=== PATIENT | female | born 1965 | race Caucasian/White ===

== ENCOUNTER 2019-11-21 13:22 | Emergency (ER) | payer BC, SELFPAY ==
--- NOTE | ~2019-11-21 | CT_ITS ---
EXAMINATION: CT brain wo con EXAM DATE: 11/21/2019 16:13 INDICATION: Dizziness. TECHNIQUE: Spiral CT of the head was performed without contrast. Axial, coronal and sagittal images were reviewed. The dose-length product (DLP) for this examination was 605.33 mGy-cm. The exposure w as tailored according to patient size, and iterative reconstruction (ASIR) was used as additional dos e reduction technique. There is no prior study for comparison. FINDINGS: There is no acute intraparenchymal hemorrhage. No evidence of intraparenchymal brain mass lesion. No evidence of acute infarction. There is no mass effect or midline shift. The ventricles are normal in size. There are no extra-axial collections. There are no acute calvarial fractures. T he orbits are unremarkable. Soft tissue is unremarkable. The visualized sinuses and mastoid air alicia ls are well aerated. IMPRESSION: 1. Normal head CT examination. Reviewed, dictated and finalized at location A. 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
--- NOTE | ~2019-11-21 | XR_ITS ---
XR chest 1V portable DATE: 11/21/2019 16:02 INDICATION: Dizziness TECHNIQUE: Portable upright AP chest on 11/21/2019 at 1559 hours COMPARISON: None FINDINGS: Normal heart size. No hilar or mediastinal enlargement. Bilateral hyperinflation. No pulmonary infiltrate or consolidation, pleural effusion or pulmonary vas cular congestion or pneumothorax. IMPRESSION: Bilateral hyperinflation Reviewed, dictated and finalized at location B. 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
[2019-11-21 13:29] VITALS: BP 125/75; PULSE 85; RESP 18; TEMP 36.8; O2SAT 100
[2019-11-21 13:55] LABS: Basophils Percent Auto 0.2 % (0.2-1.2); Hematocrit 45.2 % (37.0-47.0); Immature Granulocyte Absolute 0.02 K/mm3 (0.00-0.031); Immature Granulocyte Percent A 0.2 % (0-0.5); Lymphocytes Absolute Auto 0.89 K/mm3 (0.9-3.2); Mean Corpuscular HGB Conc 33.2 g/dl (32-36); Mean Corpuscular Hemoglobin 30.7 pg (26-34); Mean Corpuscular Volume 92.4 fl (80-100); Mean Platelet Volume 12.2 fl (7.4-10.4); Monocytes Absolute Auto 0.3 K/mm3 (0.1-0.6); Monocytes Percent Auto 3.7 % (2.6-8.5); Neutrophils Absolute Auto 6.8 K/mm3 (1.3-6.7); Neutrophils Percent Auto 84.9 % (45.5-73.1); Platelet Count Result 224 k/mm3 (150-375); Red Blood Count 4.89 M/mm3 (4.2-5.4); Red Cell Distribution Width 12.6 % (11.5-14.5); White Blood Count 8.1 K/mm3 (4.5-10.0)
[2019-11-21 14:03] LABS: Alanine Aminotransferase 21 U/L (4-35); Albumin Level 4.7 g/dL (3.5-5.1); Alkaline Phosphatase 95 U/L (38-126); Aspartate Amino Transferase 28 U/L (14-36); Bilirubin,Total 0.5 mg/dL (0.2-1.3); Blood Urea Nitrogen 15 mg/dL (7-17); Calcium 9.7 mg/dL (8.4-10.2); Carbon Dioxide 25 mmol/L (22-30); Chloride 99 mmol/L (98-107); Estimated CRCL calculation 81 ml/min; Estimated Glomerular Filt Rate > 60; Glucose 118 mg/dL (65-105); Lipase 56 U/L (23-300); Potassium 4.7 mmol/L (3.4-5.0); Sodium 138 mmol/L (137-145)
--- NOTE | 2019-11-21 15:51 | ED.DIZZY ---
HPI - Dizziness General Chief Complaint: Dizziness Stated Complaint: dizziness/vomiting Time Seen by Provider: 11/21/19 15:49 Source: patient Mode of arrival: ambulatory Limitations: no limitations History of Present Illness HPI Narrative: Pt is a 54 y/o female who presents to the ED with c/o dizziness that started this morning when she woke up. She reports associated nausea and vomiting. Her dizziness is aggravating with quick movements and is alleviated when laying down and closing her eyes. She denies any numbness/tingling. MD elicited complaint: dizziness Onset (ago): hour(s) (this morning) Timing: awoke with symptoms Exacerbating factors: movement/ambulation Relieving factors: lying down and keeping eyes closed Associated symptoms: nausea and vomiting Related Data Home Medications Medication Instructions Recorded Confirmed estradiol-norethindrone acet 1 tablet PO DAILY 11/21/19 levothyroxine [Synthroid] 112 mcg PO DAILY 11/21/19 11/21/19 tramadol 50 mg PO TID 11/21/19 Allergies Allergy/AdvReac Type Severity Reaction Status Date / Time No Known Allergies Allergy Verified 11/21/19 16:20 Review of Systems Review of Systems: All systems reviewed & are unremarkable except as noted in HPI and below Gastrointestinal: Gastrointestinal: Reports nausea and Reports vomiting Neurologic: Reports dizziness, Denies numbness and Denies tingling PMFSH Past Medical History Medical History (Updated 11/21/19 @ 18:00 by Akin Dunham DO) Hypothyroid Surgical History Surgical History (Updated 11/21/19 @ 16:22 by Kalyani Brown) Hx of tonsillectomy Family History Family History (Updated 06/28/18 @ 08:33 by DOCTOR UNKNOWN) Other Family history of coronary artery disease Family history of thyroid disease Social History Social History Smoking status: Never smoker Second hand tobacco smoke exposure: No Alcohol intake: current Gender identity (if verbalized by the patient): Female Exam Narrative: Exam Narrative: APPEARANCE: No acute distress, nontoxic, resting in bed HEENT: Normocephalic, atraumatic, OMM, TMs clear bilaterally EYES: PERRL, EOMI NECK: Supple, nontender, full range of motion without pain, no meningismus RESPIRATORY: No respiratory distress, clear to auscultation bilaterally with no rhonchi wheezing or rales CARDIOVASCULAR: RRR s murmur ABDOMINAL: Soft, nontender, nondistended MUSCULOSKELETAL: Moves all extremities. No clubbing, cyanosis or edema. NEURO: A and O ?3, following commands, speech normal, cranial nerves II through XII grossly intact,muscle strength 5 out of 5 bilateral upper and lower extremities dizziness increased with rapid turning of the head SKIN:: Warm, dry. Normal Color PSYCHIATRIC: Normal affect/mood Course Course Emergency Course: Patient states she is feeling much better at this time. Able to get up and ambulate in ED with no assistance Discussed with patient results of workup and diagnosis. Discussed need for follow-up with primary care, proper use of medication, and reasons to return to the emergency department. Patient understands and agrees to current treatment plan Vital Signs Vital signs: Vital Signs Temperature 98.3 F 11/21/19 13:29 Pulse Rate 85 11/21/19 13:29 Respiratory Rate 18 11/21/19 13:29 Blood Pressure 125/75 11/21/19 13:29 Pulse Oximetry 100 11/21/19 13:29 Temperature 98.3 F 11/21/19 13:29 Pulse Rate 85 11/21/19 13:29 Respiratory Rate 18 11/21/19 13:29 Blood Pressure 125/75 11/21/19 13:29 Pulse Oximetry 100 11/21/19 13:29 MDM - Dizziness MDM Narrative Medical decision making narrative: Patient's vertigo is felt to be likely peripheral in origin. There is no diplopia, dysarthria or dysphagia. Patient's gait is stable and there are no cerebral deficits to exam. Risk factor for central causes of vertigo reviewed. Patient felt likely reasonable for co
[2019-11-21] MEDS: ONDANSETRON INJ 4 MG/2 ML VIAL IV PUSH (17:21)
[2019-11-21] MEDS: LACTATED RINGERS 1,000 ML 999 ML IV CONT (17:21)
[2019-11-21] MEDS: MECLIZINE HCL 25 MG TABLET PO (17:24)
--- NOTE | 2019-11-21 17:52 | ECG_ITS ---
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
[2019-11-21 18:47] VITALS: BP 123/95; PULSE 77; RESP 18; O2SAT 100
--- NOTE | 2019-11-29 08:27 | PC.NURSE ---
LATE ENTRY This note is being entered to document information to the patient's record. The following information was omitted on [11/21/2019], by [YVONNE Diaz]. LR 1000mL infused with a stop time of 1820.
== END 2019-11-21 18:48 | disposition home or self-care (01) ==
PROVIDERS: Emergency Provider Emergency Medicine; PCP Family Medicine
DX: R42 Dizziness and giddiness (principal); E03.9 Hypothyroidism, unspecified
CPT/HCPCS: 36415; 70450; 71045; 80053; 83690; 85025; 93005; 96361; 96374; 99284; A9270; J2405; J7120

== ENCOUNTER 2020-04-06 07:36 | Outpatient (CLI) | payer BC, SELFPAY ==
--- NOTE | ~2020-04-06 | MM_ITS ---
EXAMINATION: MM screening [facility] BI w penny HISTORY: Screening mammogram TECHNIQUE: Craniocaudal and mediolateral oblique 3-D tomosynthesis images were obtained and synthetic 2-D images were generated. CAD analysis was submitted and interpreted. COMPARISON: 02/25/2019 diagnostic right digital mammogram and limited right breast ultrasound 02/18/2019 bilateral digital screening mammogram 01/29/2018 diagnostic left digital mammogram and complete left breast ultrasound 01/28/2018, 01/22/2017, 01/19/2016 bilateral digital screening mammogram examinations BREAST PARENCHYMAL COMPOSITION: The breasts are heterogeneously dense, which may obscure small masses . FINDINGS: Stable fibroglandular asymmetry. There is no evidence of suspicious mass, calcification, or architectural distortion to suggest malignancy in either breast. There has been no suspicious interv al change. IMPRESSION: 1. No mammographic evidence of malignancy. 2. Recommend routine screening mammography in one year. BI-RADS Category 2: Benign finding(s). Reviewed, dictated and finalized at location A.
== END 2020-04-06 07:37 | disposition home or self-care (01) ==
LOC: ANHIMG 07:38
PROVIDERS: PCP Family Medicine; Visit Provider Obstetrics & Gynecology
DX: Z12.31 Encounter for screening mammogram for malignant neoplasm of breast (principal)
CPT/HCPCS: 77063; 77067

== ENCOUNTER 2021-04-07 07:33 | Outpatient (CLI) | payer BC, SELFPAY ==
--- NOTE | ~2021-04-07 | MM_ITS ---
EXAMINATION: MM screening [facility] BI w penny HISTORY: Screening mammogram TECHNIQUE: Craniocaudal and mediolateral oblique 3-D tomosynthesis images were obtained and synthetic 2-D images were generated. CAD analysis was submitted and interpreted. COMPARISON: Prior mammogram examinations and bilateral breast ultrasound examinations dating back to 01/11/2015 BREAST PARENCHYMAL COMPOSITION: The breasts are heterogeneously dense, which may obscure small masses . FINDINGS: There is stable fibroglandular asymmetry dating back to 01/11/2015. There is no evidence of suspicious mass, calcification, or architectural distortion to suggest malignancy in either breast. T here has been no suspicious interval change. IMPRESSION: 1. No mammographic evidence of malignancy. 2. Recommend routine screening mammography in one year. BI-RADS Category 2: Benign finding(s). Reviewed, dictated and finalized at location A.
== END 2021-04-07 07:34 | disposition home or self-care (01) ==
LOC: ANHIMG 07:36
PROVIDERS: PCP Family Medicine; Visit Provider Obstetrics & Gynecology
DX: Z12.31 Encounter for screening mammogram for malignant neoplasm of breast (principal)
CPT/HCPCS: 77063; 77067

== ENCOUNTER 2022-04-10 07:18 | Outpatient (CLI) | payer BC, SELFPAY ==
--- NOTE | ~2022-04-10 | MM_ITS ---
EXAMINATION: MM screening [facility] BI w penny HISTORY: Screening TECHNIQUE: Craniocaudal and mediolateral oblique 3-D tomosynthesis images were obtained and synthetic 2-D images were generated. CAD analysis was submitted and interpreted. COMPARISON: Comparison to multiple prior studies sequentially, with oldest reviewed study dated 01/28. BREAST PARENCHYMAL COMPOSITION: Breast composed of scattered areas of fibroglandular density FINDINGS: There is no evidence of suspicious mass, calcification, or architectural distortion to sugg est malignancy in either breast. There has been no suspicious interval change. IMPRESSION: 1. No mammographic evidence of malignancy. 2. Recommend routine screening mammography in one year. BI-RADS Category 1: Negative Reviewed, dictated and finalized at location A.
== END 2022-04-10 07:19 | disposition home or self-care (01) ==
LOC: ANHIMG 07:21
PROVIDERS: PCP Family Medicine; Visit Provider Obstetrics & Gynecology
DX: Z12.31 Encounter for screening mammogram for malignant neoplasm of breast (principal)
CPT/HCPCS: 77063; 77067

== ENCOUNTER 2023-04-12 07:18 | Outpatient (CLI) | payer BC, SELFPAY ==
--- NOTE | ~2023-04-12 | MM_ITS ---
EXAMINATION: MM screening [facility] BI w penny HISTORY: Screening mammogram TECHNIQUE: Craniocaudal and mediolateral oblique 3-D tomosynthesis images were obtained and synthetic 2-D images were generated. CAD analysis was submitted and interpreted. COMPARISON: 04/10/2022, 04/03/2021, 04/06/2020 bilateral screening mammogram examinations BREAST PARENCHYMAL COMPOSITION: The breasts are heterogeneously dense, which may obscure small masses . FINDINGS: There is increased density in the upper right breast on MLO projection since 04/10/2022. Sug gestion of an 11 mm partially circumscribed mass with halo sign in the posterior outer right breast ( craniocaudal Tomosynthesis image 20/55). Additional masses may be obscured by the heterogeneously den se stroma. Diagnostic right mammogram and right breast ultrasound examination are recommended. No suspicious mass, architectural distortion, malignant calcification, skin thickening or retraction or significant new or developing density is noted on the left. IMPRESSION: 1. Interval increase density and possible masses, right breast 2. Diagnostic right mammogram and right breast ultrasound examination are recommended BI-RADS Category 0: Incomplete: Needs additional imaging evaluation. Reviewed, dictated and finalized at location A. IMPRESSION: 1. Interval increase density and possible masses, right breast 2. Diagnostic right mammogram and right breast ultrasound examination are recom mended BI-RADS Category 0: Incomplete: Needs additional imaging evaluation.
== END 2023-04-12 07:19 | disposition home or self-care (01) ==
PROVIDERS: PCP Family Medicine; Visit Provider Obstetrics & Gynecology
DX: Z12.31 Encounter for screening mammogram for malignant neoplasm of breast (principal); R92.8 Other abnormal and inconclusive findings on diagnostic imaging of breast
CPT/HCPCS: 77063; 77067

== ENCOUNTER 2023-04-13 08:40 | Outpatient (CLI) | payer BC, SELFPAY ==
--- NOTE | ~2023-04-13 | MMUS_ITS ---
EXAMINATION: MM diagnostic [facility] RT w penny, US breast RT complete HISTORY: Interval increased density and possible masses, right breast, reported on 04/12/2023 screenin g mammogram TECHNIQUE: Additional 3-D tomosynthesis images of the right breast were performed and synthetic 2-D i mages were generated. CAD analysis was submitted and interpreted. High resolution complete right mick [facility] ultrasound examination including all 4 quadrants and subareolar area was performed. COMPARISON: 04/12/2023, 04/10/2022, 04/03/2021 bilateral screening mammogram examinations FINDINGS: MAMMOGRAPHIC FINDINGS: With benefit of these supplemental views, no significant reproducible mass or architectural distortio n is evident compared to prior examinations dating back to 04/03/2021. The heterogeneously dense stroma may obscure masses. Complete right breast ultrasound examination was performed. ULTRASOUND: There is dense breast tissue but no reproducible suspicious mass or shadowing is evident. IMPRESSION: 1. No mammographic evidence of malignancy 2. Routine annual mammographic screening is recommended BI-RADS Category 1: Negative Reviewed, dictated and finalized at location A. IMPRESSION: 1. No mammographic evidence of malignancy 2. Routine annual mammographic screening is recommended BI-RADS Category 1: Negative
== END 2023-04-13 08:41 | disposition home or self-care (01) ==
LOC: CHSIMG 08:41
PROVIDERS: PCP Family Medicine; Visit Provider Obstetrics & Gynecology
DX: N63.10 Unspecified lump in the right breast, unspecified quadrant (principal)
CPT/HCPCS: 76641; 77061; 77065; G0279

== ENCOUNTER 2024-04-14 07:09 | Outpatient (CLI) | payer BC, SELFPAY ==
--- NOTE | ~2024-04-14 | MM_ITS ---
EXAMINATION: MM screening [facility] BI w penny HISTORY: Screening mammogram TECHNIQUE: Craniocaudal and mediolateral oblique 3-D tomosynthesis images were obtained and synthetic 2-D images were generated. CAD analysis was submitted and interpreted. COMPARISON: 04/12/2023, 04/10/2022, 04/07/2021 BREAST PARENCHYMAL COMPOSITION:Dense: The breasts are heterogeneously dense, which may obscure small masses. FINDINGS: No suspicious mass, calcification, or architectural distortion are identified in either guerita ast to suggest malignancy. There has been no suspicious interval change. IMPRESSION: No mammographic evidence of malignancy. Recommend routine screening mammography in one year. BI-RADS Category 1: Negative Reviewed, dictated and finalized at location .
== END 2024-04-14 07:10 | disposition home or self-care (01) ==
LOC: ANHIMG 07:11
PROVIDERS: PCP Family Medicine; Visit Provider Obstetrics & Gynecology
DX: Z12.31 Encounter for screening mammogram for malignant neoplasm of breast (principal)
CPT/HCPCS: 77063; 77067

== ENCOUNTER 2024-07-24 00:38 | Day surgery (SDC) | payer BC, SELFPAY ==
[2024-07-08 08:23] VITALS: BMI 24.6
[2024-07-24 06:42] VITALS: BP 109/91; PULSE 101; RESP 20; TEMP 37.1; O2SAT 100; BMI 23.9
[2024-07-24] MEDS: LACTATED RINGERS 1,000 ML 150 ML IV CONT (06:51)
--- NOTE | 2024-07-24 07:20 | WPDANESEPPF ---
Anes - Initial Pre Proc Eval Procedure: Operation Date: 07/24/24 08:00 Proposed Procedures p Screening Colonoscopy - Dg Reed DO Date/Time: 07/24/24 07:20 Surgeon: Dg Reed DO Pre Op Diagnosis: neoplasm screening Patient Data Age: 59 Gender: F Height: 1.65 m Weight: 65.2 kg Last Vital Signs Temp 98.8 F 07/24/24 06:42 Pulse 101 H 07/24/24 06:42 Resp 20 07/24/24 06:42 BP 109/91 H 07/24/24 06:42 Pulse Ox 100 07/24/24 06:42 O2 Del Method Room Air 07/24/24 06:42 Allergies Allergy/AdvReac Type Severity Reaction Status Date / Time No Known Allergies Allergy Verified 07/24/24 06:40 Home Medications Medication Instructions Recorded Confirmed Type cyanocobalamin (vitamin B-12) 1,000 mcg PO DAILY 01/27/21 07/24/24 History 1,000 mcg tablet loratadine 10 mg tablet (Claritin) 10 mg PO DAILY PRN allergy symptoms 09/05/21 07/24/24 History magnesium 250 mg tablet 250 mg PO DAILY 09/13/23 07/24/24 History niacin (inositol niacinate) 500 mg 1 tablet PO DAILY 09/13/23 07/24/24 History tablet theanine 200 mg capsule 200 mg PO DAILY 09/13/23 07/24/24 History levothyroxine 150 mcg tablet 150 mcg PO . q.a.m. #90 tabs 04/08/24 07/24/24 Rx tramadol 50 mg tablet 100 mg PO QHS #180 tabs 07/15/24 07/24/24 Rx Patient hx anesthesia problems: none Family hx anesthesia problems: none Results Review: All pre-operative results and documents have been reviewed as part of the pre-operative evaluation. [facility] Past Medical History Medical History (Updated 04/16/24 @ 11:13 by Garo Smith MD) Anxiety BMI 23.0-23.9, adult Breast cancer screening by mammogram normal mammogram 04/07/2021. diagnostic mammogram 04/03/2023 with no suspicious lesions. Normal mammogram 04/14/2024. Bruxism resolved 09/05/2021 Colon cancer screening normal colonoscopy 09/25/2014 Dyslipidemia Exposure to COVID-19 virus Heart murmur (01/27/21) Herpes zoster (09/09/22) left L4 dermatome Hypothyroid Hypothyroidism determined by thyroid function test Insomnia (~04/2022) Mass of right breast on mammogram Neoplasm of skin (~2019) crusted lesion left lateral thigh Postmenopausal hormone replacement therapy RLS (restless legs syndrome) Screening mammogram, encounter for Seasonal allergic rhinitis Vitamin B12 deficiency anemia level normal at 1928 on 08/15/2021. Normal at greater than 2000 On 09/01/2022. Greater than 2000 on 09/10/2023 with hemoglobin 14.1. Wound of skin Surgical History Surgical History History of cervical polypectomy (06/18/14) benign cx/endocx polyp History of dilatation and curettage (03/06/19) hscope d&c--postmenopausal bleeding--endometrial polyp/polypectomy Hx of tonsillectomy Family History Family History Grandparent Hypertension maternal grandmother Heart disease maternal grandmother Mother Malignant neoplasm of lung, Onset Age: 78 Other Family history of coronary artery disease Family history of thyroid disease Social History Social History Smoking status: Never smoker Second hand tobacco smoke exposure: No Alcohol intake: current Alcohol use details: wine occasionally Substance use: never Substance use type: does not use Do You Feel Safe in your Home?: Yes Lack of Transportation: No Lack of Food: Never True Current Housing: I Have Housing Concerned About Future Housing: No Difficulty Paying Gas/Electric Bills: No Difficulty Paying for Meds: No Currently Unemployed: No Education: High School Diploma/GED Difficulty w/ Childcare or Family Care: No Living arrangements: with family Additional living arrangements comments: 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
--- NOTE | 2024-07-24 07:25 | PM.IMHP ---
H&P: HPI History of Present Illness Date/Time: 07/24/24 07:25 Chief Complaint: Screening for colorectal cancer Narrative: this is a 59-year-old woman who presents for colonoscopy. Her last colonoscopy was 10 years ago was normal. She denies any hematochezia or melena. She denies any family history of colon cancer. Review of Systems Review of Systems: All systems reviewed & are unremarkable except as noted in HPI and below Constitutional: Constitutional: Denies chills, Denies fever(s), Denies headache(s) and Denies weight loss Eyes: Eyes: Denies change in vision ENT: Denies dizziness, Denies headache(s), Denies neck mass and Denies throat swelling Cardiovascular: Cardiovascular: Denies chest pain, Denies lightheadedness and Denies dyspnea Respiratory: Respiratory: Denies cough, Denies dyspnea and Denies wheezing Gastrointestinal: Gastrointestinal: Denies abdominal pain, Denies change in bowel habits, Denies nausea and Denies vomiting Genitourinary: Genitourinary: Denies hematuria and Denies dysuria Musculoskeletal: Musculoskeletal: Reports as per HPI Integumentary/Breasts: Skin/Breast: Reports as per HPI Neurologic: Denies dizziness and Denies headache(s) Allergic/Immunologic: Allergic/Immunologic: Denies throat swelling and Denies wheezing [facility] Past Medical History Medical History (Updated 07/24/24 @ 07:26 by Dg Reed DO) Anxiety BMI 23.0-23.9, adult Breast cancer screening by mammogram normal mammogram 04/07/2021. diagnostic mammogram 04/03/2023 with no suspicious lesions. Normal mammogram 04/14/2024. Bruxism resolved 09/05/2021 Colon cancer screening normal colonoscopy 09/25/2014 Dyslipidemia Exposure to COVID-19 virus Heart murmur (01/27/21) Herpes zoster (09/09/22) left L4 dermatome Hypothyroid Hypothyroidism determined by thyroid function test Insomnia (~04/2022) Mass of right breast on mammogram Neoplasm of skin (~2019) crusted lesion left lateral thigh Postmenopausal hormone replacement therapy RLS (restless legs syndrome) Screening mammogram, encounter for Seasonal allergic rhinitis Vitamin B12 deficiency anemia level normal at 1928 on 08/15/2021. Normal at greater than 2000 On 09/01/2022. Greater than 2000 on 09/10/2023 with hemoglobin 14.1. Wound of skin Surgical History Surgical History History of cervical polypectomy (06/18/14) benign cx/endocx polyp History of dilatation and curettage (03/06/19) hscope d&c--postmenopausal bleeding--endometrial polyp/polypectomy Hx of tonsillectomy Family History Family History Grandparent Hypertension maternal grandmother Heart disease maternal grandmother Mother Malignant neoplasm of lung, Onset Age: 78 Other Family history of coronary artery disease Family history of thyroid disease Social History Social History Smoking status: Never smoker Second hand tobacco smoke exposure: No Alcohol intake: current Alcohol use details: wine occasionally Substance use: never Substance use type: does not use Do You Feel Safe in your Home?: Yes Lack of Transportation: No Lack of Food: Never True Current Housing: I Have Housing Concerned About Future Housing: No Difficulty Paying Gas/Electric Bills: No Difficulty Paying for Meds: No Currently Unemployed: No Education: High School Diploma/GED Difficulty w/ Childcare or Family Care: No Living arrangements: with family Additional living arrangements comments: 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
[2024-07-24 07:46] VITALS: BP 101/63; PULSE 81; RESP 23; O2SAT 98
[2024-07-24 07:56] VITALS: BP 93/63; PULSE 80; RESP 23; O2SAT 99
[2024-07-24 08:06] VITALS: BP 109/60; PULSE 72; RESP 17; O2SAT 100
== END 2024-07-24 08:28 | disposition home or self-care (01) ==
PROVIDERS: PCP Family Medicine; Visit Provider Surgery
PROC: 0DJD8ZZ Inspection of Lower Intestinal Tract, Via Natural or Artificial Opening Endoscopic (ICD-10-PCS; CPT 45378; principal; 2024-07-24 08:00)
DX: Z12.11 Encounter for screening for malignant neoplasm of colon (principal); K62.1 Rectal polyp; F41.9 Anxiety disorder, unspecified; E78.5 Hyperlipidemia, unspecified; R01.1 Cardiac murmur, unspecified; E03.9 Hypothyroidism, unspecified; G47.00 Insomnia, unspecified; G25.81 Restless legs syndrome; E53.8 Deficiency of other specified B group vitamins; Z79.891 Long term (current) use of opiate analgesic; Z98.890 Other specified postprocedural states; Z80.1 Family history of malignant neoplasm of trachea, bronchus and lung; Z82.49 Family history of ischemic heart disease and other diseases of the circulatory system
CPT/HCPCS: 45380; 88305; J2003; J2704; J7120

== ENCOUNTER 2025-04-20 07:11 | Outpatient (CLI) | payer BC, SELFPAY ==
--- NOTE | ~2025-04-20 | MM_ITS ---
EXAMINATION: MM screening [facility] BI w penny HISTORY: Screening TECHNIQUE: Craniocaudal and mediolateral oblique 3-D tomosynthesis images were obtained and synthetic 2-D images were generated. CAD analysis was submitted and interpreted. COMPARISON: Comparison to multiple prior studies sequentially, with oldest reviewed study dated 04/06. BREAST PARENCHYMAL COMPOSITION: Dense: The breasts are heterogeneously dense, which may obscure small masses FINDINGS: Stable benign-appearing low-density asymmetry in the lower outer quadrant of the right mick st posteriorly. There is no evidence of new suspicious mass, calcification, or architectural distorti on to suggest malignancy in either breast. There has been no suspicious interval change. IMPRESSION: 1. No mammographic evidence of malignancy. 2. Recommend routine screening mammography in one year. BI-RADS Category 2: Benign finding(s). Reviewed, dictated and finalized at location A.
== END 2025-04-20 07:12 | disposition home or self-care (01) ==
LOC: ANHIMG 07:14
PROVIDERS: PCP Family Medicine; Visit Provider Obstetrics & Gynecology
DX: Z12.31 Encounter for screening mammogram for malignant neoplasm of breast (principal)
CPT/HCPCS: 77063; 77067